=== PATIENT | male | born 1995 | race Caucasian/White ===

== ENCOUNTER 2019-07-18 10:32 | Emergency (ER) | payer SELFPAY ==
[2019-07-18] MEDS ORDERED: 0.9 % SODIUM CHLORIDE 1,000 ML BAG IV ONE ×2 (10:35→12:06)
[2019-07-18] MEDS ORDERED: FENTANYL PF 100MCG/2ML VIAL IVP ONE ×2 (10:36→11:42)
--- NOTE | 2019-07-18 10:40 | Emergency Department Record ---
History of Present Illness - General Stated Complaint: FALL Time Seen by Provider: 07/18/19 10:33 Source: Patient Mode of Arrival: Ambulatory Limitations: No limitations - History of Present Illness Initial Comments: 24 yo male presents after a 20 foot fall off a roof that he was working on. He states he did not have an LOC. He landed on his feet. No head or neck injury. He self presented to the ED ambulatory. No numbness or tingling in the arms or legs. He has back pain and left wrist pain. No chest or abdominal pain. He did clean the wrist with soap, water and peroxide prior to arrival. His tetanus was up to date. He has a small laceration on the left wrist. No shortness of breath. He self presented to the ED. No allergies to antibiotics. Tetanus is up to date. MD Complaint: Fall -: Minutes(s) Fall From: Other (Roof approximately 20 feet) When Fall Occurred: Just prior to arrival Fall Witnessed: Yes, by bystander Place Fall Occurred: Work Loss of Consciousness: None Prolonged Down Time?: No Symptoms Prior to Fall: None Location: Back, Other Location - Extremities: Left: Forearm Severity: Moderate Quality: Aching Context: Other Associated Symptoms: Other - [place] Coma Scale Eye Response: (4) Open spontaneously Motor Response: (6) Obeys commands Verbal Response: (5) Oriented [place] Total: 15 - Related Data Previous Rx's Medication Instructions Recorded Cephalexin [Keflex] 500 mg PO QID #21 cap 07/18/19 Hydrocodone/Acetaminophen [[place] 1 tab PO Q6H PRN #12 tab 07/18/19 5mg/325mg] Allergies Allergy/AdvReac Type Severity Reaction Status Date / Time No Known Drug Allergies Allergy Verified 07/18/19 11:39 Review of Systems Constitutional: Denies: Chills, Fever, Weakness Eyes: Denies: Eye discharge ENT: Denies: Congestion, Throat pain Respiratory: Denies: Cough, Dyspnea Cardiovascular: Denies: Chest pain, Palpitations, Syncope Endocrine: Denies: Fatigue Gastrointestinal: Denies: Abdominal pain, Diarrhea, Nausea, Vomiting Genitourinary: Denies: Dysuria, Frequency, Hematuria Musculoskeletal: Reports: Back pain, Joint swelling, Myalgia Skin: Denies: Bruising, Change in color, Rash Neurological: Denies: Headache, Tingling Psychiatric: Denies: Anxiety Hematological/Lymphatic: Denies: Easy bleeding, Easy bruising Physical Exam - General General Appearance: Alert, Oriented x3, Cooperative, No acute distress Limitations: No limitations - Head Head exam: Atraumatic, Normocephalic, Normal inspection Head exam detail: negative: Abrasion, Contusion, Hematoma, Laceration - Eye Eye exam: Normal appearance, PERRL. negative: Conjunctival injection, Scleral icterus - ENT ENT exam: Normal exam, Mucous membranes moist Ear exam: Normal external inspection Nasal Exam: Normal inspection Mouth exam: Normal external inspection - Neck Neck exam: Normal inspection, Full ROM. negative: Tenderness - Respiratory Respiratory exam: Normal lung sounds bilaterally. negative: Accessory muscle use, Chest wall tenderness, Decreased breath sounds, Prolonged expiratory, Respiratory distress, Rhonchi, Stridor, Wheezes - Cardiovascular Cardiovascular Exam: Regular rate, Normal rhythm, Normal heart sounds Peripheral Pulses: 2+: Radial (R), Radial (L) - GI/Abdominal GI/Abdominal exam: Soft. negative: Tenderness - Rectal Rectal exam: Deferred - exam: Deferred - Extremities Extremities exam: Joint swelling, Tenderness. negative: Normal inspection, Full ROM Image of Full Body: 1 - distal left wrist tenderness and swelling with approximately 15mm laceration 2 - tenderness - Back Back exam: Reports: Normal inspection, CVA tenderness (R), Tenderness, Vertebral tenderness - Neurological Neurological exam: Alert, Oriented X3 - Psychiatric Psychiatric exam: Normal affect, Normal mood - Skin Skin exam: Abrasion Type of lesion: Laceration Course - Reevaluation(s) Reevaluation #1: FAST bedside performed at arrival Negative for blood on R/L upper quadrant, bladder. The cardiac view was negative. 07/18/19 11:40 The labs were reviewed No significant changes on the CBC or DMP The troponin and alcohol are negative The Lactic Acid is 3.1 07/18/19 11:41 07/18/19 12:19 The HCT is negative for acute injury The Cervical Spine is negative for acute injury The Chest is negative for acute injury. Old rib fractures noted The Wrist XR is negative for acute process The CT of the abdomen and pelvis is negative for acute process. Trace FF likely physiologic. 07/18/19 12:30 Procedure: Wrist Laceration 1.5 cm laceration of the wrist on the L Wound was cleaned and prepped in sterile fashion, no residual FB identified on examination. The wound was copiously irrigated with NS Wound was anesthetized with 3 mL of 1% Lidocaine with epinephrine The laceration was repaired with Prolene 4-0 sutures in interrupted fashion. Patient tolerated the procedure well without complications. We discussed home care, reasons for immediate return if any concerns, and suture removal in 10 days All the results were discussed with the patient. No acute traumatic findings. His vitals have remained stable. He ambulates without limiting pain. We discussed follow up of the wrist given the pain and laceration. We discussed signs of infection to monitor for. We discussed signs and symptoms that should prompt immediate evaluation and return or be seen. He does have a PCP to follow up with in [place] as well. 07/18/19 Medical Decision Making - Lab Data Result diagrams: 07/18/19 10:35 07/18/19 10:35 Disposition Disposition: Discharge Clinical Impression: Laceration of wrist Qualifiers: Encounter type: initial encounter Laterality: left Qualified Code(s): S61.512A - Laceration without foreign body of left wrist, initial encounter Fall Qualifiers: Encounter type: initial encounter Qualified Code(s): W19.XXXA - Unspecified fall, initial encounter Disposition: Home, Self-Care Condition: (1) Good Instructions: Laceration (ED) Additional Instructions: Call your doctor for the next available follow up appointment to recheck your wrist Review this ER visit and the tests performed with your family doctor You will need a recheck of any area that remains painful Return to the ER for a recheck if worse, any new concerns or questions Take the prescriptions provided as directed Prescriptions: Cephalexin [Keflex] 500 mg PO QID #21 cap Hydrocodone/Acetaminophen [[place] 5mg/325mg] 1 tab PO Q6H PRN #12 tab PRN Reason: Pain - General Forms: Patient Portal Access Time of Disposition: 13:14 Quality - Quality Measures Quality Measures: N/A - Blood Pressure Screening Does Patient Have Any of the Following: No Blood Pressure Classification: Normal BP Reading Systolic Measurement: 106 Diastolic Measurement: 52 Screening for High Blood Pressure: < Normal BP, F/U Not Required > [[id number]]
[2019-07-18 10:42] LABS: ABSOLUTE NEUTROPHIL COUNT 5.26; EOS % 7.6 % (0-6); GRAN % 43.6 % (47-80); HEMATOCRIT 42.8 % (42.0-52.0); HEMOGLOBIN 14.6 gm/dl (14.0-18.0); MEAN CELL VOLUME 88.8 fl (81-97); MEAN CORPUSCULAR HEMOGLOBIN 30.3 pg (27-33); MEAN CORPUSCULAR HGB CONC 34.1 g/dl (32-36); MONO % 6.8 % (0-9); PLATELET COUNT 319 K/uL (130-400); RED BLOOD COUNT 4.82 M/uL (4.40-5.70); RED CELL DISTRIBUTION WIDTH 13.2 % (11.5-14.5); WHITE BLOOD COUNT W/O DIFF 12.1 K/uL (4.2-12.2)
[2019-07-18 10:52] LABS: BLOOD UREA NITROGEN 11 mg/dL (6-20)
[2019-07-18 10:53] LABS: CREATININE 1.1 mg/dL (0.7-1.2); EST GLOMERULAR FILTRATION RATE > 60 mL/min; TOTAL PROTEIN 6.3 g/dL (6.6-8.7)
[2019-07-18 10:54] LABS: PARTIAL THROMBOPLASTIN TIME 22.6 SECONDS (24.5-39.1); PROTHROMBIN TIME (PATIENT) 10.1 SECONDS (9.5-12.1)
[2019-07-18 10:55] LABS: GLUCOSE,RANDOM 144 mg/dL (74-109); LACTIC ACID 3.1 mmol/L (0.5-2.2)
[2019-07-18 10:58] LABS: ALBUMIN 4.2 g/dL (4.0-5.0); ALKALINE PHOSPHATASE 74 U/L (40-129); ALT/SGPT 12 U/L (<41); AST/SGOT 17 U/L (10.0-50.0)
[2019-07-18 11:22] LABS: ABO GROUP A; RH TYPE NEGATIVE
[2019-07-18 11:36] LABS: ANTIBODY SCREEN NEGATIVE (NEGATIVE)
[2019-07-18] MEDS ORDERED: HYDROCODONE/APAP 5/325MG TABLET PO ONE (12:06)
--- NOTE | 2019-07-20 12:50 | CT SCAN REPORT ---
EXAM: CT OF THE BRAIN WITHOUT CONTRAST HISTORY: FALL FROM ROOF LANDING ON BACK. TECHNIQUE: Routine noncontrast CT of the brain was obtained. Comparison: No prior imaging of the brain available for comparison. Same day CT cervical spine. FINDINGS: The ventricles and subarachnoid spaces are normal in size. No area of abnormally increased or decreased attenuation is noted throughout the brain substance. No abnormal extraaxial fluid collection is seen nor is there skull fracture identified. Retention cysts are demonstrated within the maxillary sinuses. The paranasal sinuses and mastoid air cells are otherwise clear. Dental caries involves a few teeth. The orbits to the extent visualized are unremarkable. A round metallic foreign body is noted in the left maxillary soft tissues. This foreign body is known to the patient. IMPRESSION: 1. NO CT EVIDENCE OF AN ACUTE INTRACRANIAL ABNORMALITY NOR SKULL FRACTURE. 2. RETENTIONS CYSTS WITHIN THE FLOORS OF THE MAXILLARY SINUSES. 3. ROUND METALLIC FOREIGN BODY IN THE LEFT MAXILLARY/ZYGOMATIC SOFT TISSUES. JOB NUMBER: [id number] [facility]
--- NOTE | 2019-07-20 12:58 | CT SCAN REPORT ---
EXAM: CT OF THE CERVICAL SPINE WITHOUT CONTRAST HISTORY: FALL FROM ROOF LANDING ON BACK. BACK AND NECK PAIN. TECHNIQUE: Thin collimation helical CT examination of the cervical spine was performed without intravenous contrast. Coronal and sagittal reformatted images are generated and reviewed. Comparison: Same day noncontrast CT of the brain. Same day CT chest with contrast. FINDINGS: There is normal bone mineralization. There is straightening of the normal cervical lordosis likely due to positioning or muscle spasm. The vertebral bodies are otherwise normal in alignment and height. No acute fracture, destructive bone lesion nor prevertebral soft tissue swelling. The intervertebral disks, uncovertebral joints, and facet joints are maintained. No perched facet. No osseous cervical spinal stenosis. The neural foramina appear patent. Dental caries is noted involving the right maxillary wisdom tooth and the left maxillary wisdom tooth. Retentions cysts are demonstrated within the floors of the maxillary sinuses, right greater than left. No definite cervical mass nor adenopathy though evaluation is limited by a paucity of fat. There are small amount of gas in the region of the right neck base likely within venous structures from recent IV start. IMPRESSION: NO ACUTE FRACTURE, SUBLUXATION, OR PREVERTEBRAL SOFT TISSUE SWELLING. JOB NUMBER: [id number] [facility]
--- NOTE | 2019-07-20 13:24 | CT SCAN REPORT ---
EXAM: CT OF THE CHEST WITH CONTRAST HISTORY: FALL OFF ROOF LANDING ON BACK. BACK PAIN. TECHNIQUE: Contrast enhanced helical CT examination of the thorax was performed in conjunction with same day contrast enhanced CT abdomen and pelvis examination. 95 ml of Omnipaque 300 were utilized. Oral contrast was not utilized. Please see separate CT abdomen and pelvis report. FINDINGS: The heat is normal in size. The thoracic aorta is normal in caliber. The arch branch vessels are widely patent. There is a small amount of residual thymic tissue. No mediastinal or hilar mass/lymphadenopathy is seen. No convincing evidence of mediastinal hematoma. No evidence of contrast extravasation into the mediastinum. The central airways are clear. There is mild dependent atelectasis within the lower lungs. The lungs are otherwise clear. No pleural or pericardial effusion. No pneumothorax. There is a tiny collection of gas in the nondependent right ventricle likely relating to recent IV start. No peripheral soft tissue hematoma. No lytic or blastic bone lesion. There is an old healed fracture deformity of the posterolateral right seventh rib. No definite acute osseous fracture visualized. There is chronic appearing irregularity of the anterior aspect of the superior end plate of T12. IMPRESSION: 1. NO CT EVIDENCE OF AN ACUTE INTRATHORACIC INJURY. MILD RESIDUAL THYMIC TISSUE. 2. MILD DEPENDENT ATELECTASIS WITHIN THE LUNG BASES. 3. OLD HEALED FRACTURE DEFORMITY OF THE POSTEROLATERAL RIGHT SEVENTH RIB. NOT MENTIONED ABOVE ARE HEALING/HEALED FRACTURE DEFORMITIES OF THE ANTEROLATERAL LEFT SECOND, THIRD AND FOURTH RIBS. JOB NUMBER: [id number] [facility]
--- NOTE | 2019-07-20 13:27 | RADIOLOGY REPORT ---
EXAM: LEFT WRIST, THREE VIEWS HISTORY: FALL FROM ROOF LANDING ON BACK. BACK AND LEFT WRIST PAIN. TECHNIQUE: Three views of the left wrist were obtained. Comparison: None. Encounter: Initial. FINDINGS: There is normal bone mineralization. No acute fracture nor dislocation. The articular relations are maintained. No periarticular erosion. No suspicious focal soft tissue abnormality. IMPRESSION: NO ACUTE FRACTURE NOR DISLOCATION IDENTIFIED. JOB NUMBER: [id number] [facility]
--- NOTE | 2019-07-20 13:54 | CT SCAN REPORT ---
EXAM: CT OF THE ABDOMEN AND PELVIS WITH CONTRAST HISTORY: FALL FROM ROOF LANDING ON BACK. BACK PAIN. TECHNIQUE: Contrast enhanced helical CT examination of the chest, abdomen and pelvis was performed with 95 ml of Omnipaque [address] chest report. Comparison: No prior imaging of the abdomen and pelvis available for comparison. FINDINGS: The liver, spleen, pancreas, adrenal glands and kidneys are normal in appearance. The gallbladder is unremarkable. No biliary ductal dilatation is seen. The vasculature is normal in caliber. The intraabdominal and retroperitoneal fat are clear. No intraabdominal nor retroperitoneal adenopathy. No pelvic mass nor lymphadenopathy. Trace free fluid is noted in the cul-de-sac. This is nonspecific. No intrinsic urinary bladder abnormality. No free intraperitoneal air. No gross bowel dilatation nor bowel wall thickening. The appendix is visualized and normal in appearance. No definite acute osseous fracture. There is a tiny rudimentary rib arising from the right aspect of the L1 vertebra. IMPRESSION: 1. TRACE FREE FLUID IN THE CUL-DE-SAC QUESTIONED. THIS IS NONSPECIFIC. 2. NO DEFINITE CT EVIDENCE OF ACUTE VISCERAL INJURY. NO DEFINITE ACUTE OSSEOUS FRACTURE. JOB NUMBER: [id number] [facility]
== END 2019-07-18 13:27 | disposition home or self-care (01) ==
LOC: ER 10:32
DX: S61.512A Laceration without foreign body of left wrist, initial encounter (principal); M54.5 Low back pain; M25.532 Pain in left wrist; R10.31 Right lower quadrant pain; W13.2XXA Fall from, out of or through roof, initial encounter; Y93.H9 Activity, other involving exterior property and land maintenance, building and construction; Y99.0 Civilian activity done for income or pay; F17.210 Nicotine dependence, cigarettes, uncomplicated
CPT/HCPCS: 12001; 70450; 71260; 72125; 74177; 80053; 80320; 83605; 84484; 85025; 85610; 85730; 86850; 86900; 86901; 96374; 96376; 99285; J7030